=== PATIENT | female | born 1990 | race Caucasian/White ===

== ENCOUNTER → 2017-09-05 | Outpatient (CLI) | payer OTHER | LOC: CLAB 11:25 | DX: O20.0 Threatened abortion (principal) | CPT/HCPCS: 36415; 84702 ==

== ENCOUNTER 2018-05-08 16:20 | Inpatient (IN) ==
--- NOTE | 2018-05-08 17:28 | ED ---
History of Present Illness Service: OB ED Primary Care Physician: NOT REQUIRED Chief Complaint: Leaking fluid History of Present Illness: Pt is a 27 yo at 39 weeks. EDC 05-15-2018, care with Dr Sinclair. Pt reports some contractions last night, with some mucoid dischrge. She states that she noted clear leaking around 13:45 today. She reports active movements. GBS is negative. Cervix was Ft dilated when examined in the office yesterday. Weeks Gestation:: 39 Para: 0 : 1 - Inpatient Certification I certify that the inpatient services were ordered in accordance with Medicare regulations governing the order. This includes certification that hospital inpatient services are reasonable and necessary and in the case of services not specified as inpatient-only under 42 CFR 419.22(n), that they are appropriately provided as inpatient services in accordance to with the 2-midnight benchmark under 43 CFR 412.3(e) Review of Systems All other systems reviewed negative except as stated in HPI PMFSH - Medical / Surgical Hx Neg / Unobtainable Surgical History: No Previous Surgery - Social History I have reviewed the patient's Social History: Yes - Tobacco History Second Hand Smoke Exposure: No Tobacco Use In Past 30 Days: No - Substance Use History Substance History: No History of Abuse Medications and Allergies Allergies Allergy/AdvReac Type Severity Reaction Status Date / Time No Known Allergies Allergy Unverified 09/03/17 10:39 Exam Vital signs: Vital Signs 05/08/18 16:44 Temperature 99.2 F Pulse Rate 88 Respiratory Rate 20 Blood Pressure 126/78 - Constitutional no acute distress - Routine HEENT Exam Head: Present: normocephalic Eye: Present: PERRL - Routine Neck Exam Present: supple - Routine Respiratory Exam Present: CTA bilaterally - Routine Cardiovascular Exam Present: RRR - Routine Abdominal Exam Present: soft - Routine Neurological Exam Present: oriented X3, normal reflexes - Additional findings Additional findings: FHR Cat 1, 130s, moderate variability, accels, no decells TOCO q 1-8 minutes SVE: FT/50%/-2, posterior , soft. Assessment and Plan - Diagnosis (1) 39 weeks gestation of Code(s): Z3A.39 - 39 weeks gestation of Status: Acute (2) Leakage of amniotic fluid Code(s): O42.90 - Premature rupture of membranes, unspecified as to length of time between rupture and onset of labor, unspecified weeks of gestation Status : Acute Plan: Confirmed with [facility]. Will admit to L&D. GBS negative. - Plan SROM at term. Cervix FT. GBS negative.[facility] POSITIVE Will admit for labor. Discuused with Dr Schwartz covering for Dr Sinclair Discharge Plan - Discharge Disposition Patient Disposition: 30 Still Patient - Discharge Condition Condition: Good - Discharge Details Diagnosis: with 39 completed weeks gestation, Leakage, amniotic fluid, Admitted to labor and delivery - Physicians Team ED Provider: Oscar Simms Primary Care Provider: NOT REQUIRED,
[2018-05-08] MEDS ORDERED: Sod Chloride 0.9% Inj 1,000 ML IV.CONT PRN (17:41)
[2018-05-08] MEDS ORDERED: Naloxone Inj 0.4 MG/ML Vial IV.PUSH PRN (17:41)
[2018-05-08] MEDS ORDERED: Sodium Chlor 0.9% Inj 500 ML IV.SIG PRN (17:41)
[2018-05-08] MEDS ORDERED: Oxytocin 30 Units/500ml Premix 30 UNITS/500 ML BAG IV.SIG ONE (17:41)
[2018-05-08] MEDS ORDERED: fentaNYL Citrate Inj 100 MCG/2 ML Ampul IV.PUSH PRN (17:41)
[2018-05-08] MEDS ORDERED: Citric Acid/Sodium Citrate Liq 30 ML UDC PO SCH (17:45)
--- NOTE | 2018-05-08 17:55 | P.OBGPN ---
Brief update note placed remotely, have not yet met / examined patient S: per triage physician, pt is well O: : per triage MD finger tip / 50%. FHTs: 120s moderate variability, no deceleration, positive accelerations TOCO: ctx q 5-8 minutes A/P: 27 yo G1 at 39w0d by 8w US admitted after SROM 1. IUP: Cat 1 tracing - cephalic per triage MD on presentation, EFW to be determined, GBS neg 2. SROM / labor augmentation: clear fluid, SROM at 1345 today, BS unfavorable, put not yet in labor, begin with PO miso 25mcg, may increase to 50 if needed or until BS favorable, max 4-6 doses, then pit. Anticipate .
[2018-05-08 17:58] LABS: Baso % (Auto) 0.3 % (0.0-2.0); Eos % (Auto) 0.2 % (0.0-4.0); Hematocrit 33.9 % (35.0-46.0); Hemoglobin 11.4 gm/dL (11.6-15.3); Lymph # (Auto) 1.5 th/mm3 (1.0-4.8); Mean Corpuscular HGB Conc 33.7 % (32.0-36.0); Mean Corpuscular Hemoglobin 27.1 pg (27.0-34.0); Mean Corpuscular Volume 80.4 fL (80.0-100.0); Mean Platelet Volume 10.2 fL (7.0-11.0); Mono # (Auto) 0.7 th/mm3 (0.0-0.9); Mono % (Auto) 8.7 % (0.0-8.0); Neut # (Auto) 5.8 th/mm3 (1.8-7.7); Neut % (Auto) 71.8 % (16.0-70.0); Platelet Count 141 th/mm3 (150-450); Red Blood Count 4.22 mil/mm3 (4.00-5.30); White Blood Count 8.1 th/mm3 (4.0-11.0)
[2018-05-08 18:23] LABS: Amphetamine Urine With Conf Neg (Neg); Benzodiazepine Urine With Conf Neg (Neg)
--- NOTE | 2018-05-09 06:05 | P.OBGPN ---
S: Patient doing well, feeling contractions every 3-5 minutes, no fever, O: : Finger tip/thick/high/medium/posterior. FHTs: 120s-130s moderate variability, no deceleration, positive accelerations TOCO: Difficult to trace, irritability at times, patient subjectively feels them every 3-5 minutes. A/P: 27 yo G1 at 39w1d by 8w US admitted after SROM 1. IUP: Cat 1 tracing - cephalic per triage MD on presentation, EFW 6.5-7 lbs, GBS neg - Female fetus. 2. SROM / labor augmentation: s/p SROM at 1345 on 05/08. BS still unfavorable, put not yet in labor, continue miso 25mcg, s/p 2 PO, next rec buccally. After 4 doses will begin pit. Anticipate . - Does not desire epidural. 3. Thrombocytopenia: Likely gestational, baseline 170 in October of this year 4. Varicella nonimmune: Vaccine .
[2018-05-09] MEDS ORDERED: Oxytocin 30 Units/500ml Premix 30 UNITS/500 ML BAG IV.SIG PRN (06:08)
[2018-05-09] MEDS: fentaNYL Citrate Inj 100 MCG/2 ML Ampul IV.PUSH PRN ×2 (08:55→10:34)
[2018-05-09] MEDS ORDERED: fentaNYL 2MCG-Bupiv 0.125% Epi 150 ML EPIDURAL ONE (10:39)
[2018-05-09] MEDS ORDERED: Lidocaine PF 1% Inj 5 ML Vial ONE (10:51)
[2018-05-09] MEDS ORDERED: Bupivacaine PF 0.25% Inj 10 ML Vial ONE (10:51)
[2018-05-09] MEDS ORDERED: Lidocaine 1%/Epinephrine 1:100,000 Inj 20 ML Vial ONE (10:51)
[2018-05-09] MEDS ORDERED: Lidocaaine 1.5%/Epinephrine 1:200,000 PF Inj 5 ML Amp ONE (10:53)
[2018-05-09] MEDS ORDERED: fentaNYL 2MCG-Bupiv 0.125% Epi 150 ML EPIDURAL PRN (13:00)
[2018-05-09] MEDS ORDERED: fentaNYL Citrate Inj 100 MCG/2 ML Ampul EPIDURAL ONE (13:00)
[2018-05-09] MEDS ORDERED: Measles/Mumps/Rubella Vaccine Inj 0.5 ML Vial SQ ONE (16:00)
[2018-05-09] MEDS ORDERED: Diphtheria/Tetanus/Pertussis Vaccine Inj 0.5 ML Syringe IM ONE (16:00)
[2018-05-09] MEDS ORDERED: Zolpidem Tartrate 5 MG Tablet PO PRN (17:36)
[2018-05-09] MEDS ORDERED: Oxytocin 30 Units/500ml Premix 30 UNITS/500 ML BAG IV.CONT PRN (17:36)
[2018-05-09] MEDS ORDERED: Naloxone Inj 0.4 MG/ML Vial IV.PUSH PRN (17:36)
[2018-05-09] MEDS ORDERED: Benzocaine 20% Top Spray 60 ML Can TOPICAL PRN (17:36)
[2018-05-09] MEDS ORDERED: Acetaminophen 325 MG Tablet PO PRN (17:36)
[2018-05-09] MEDS ORDERED: Witch Hazel 50%/Glyderin 12.5% 40 Pad Jar RECTAL PRN (17:36)
[2018-05-09] MEDS ORDERED: Bisacodyl 10 MG Supp RECTAL PRN (17:36)
[2018-05-09 17:52] LABS: VBG Base Excess -6.6 mmol/L (-2-2); VBG Blood Gas Oxygen Content 18.9 Vol % (9.0-17.0); VBG PCO2 44 mmHG (44-48); VBG PH 7.26 (7.360-7.400); VBG PO2 32 mmHG (35-40)
--- NOTE | 2018-05-09 17:52 | P.OP ---
Date of procedure: 05/09/18 Surgeon: Víctor Scwhartz MD Operation and Findings: Preoperative diagnosis: 1. Intrauterine at 39 weeks and 1 day 2. Persistent category 2 tracing 3. Poor maternal pushing effort Postop diagnosis 1. Same as above status post vacuum-assisted vaginal delivery Procedure 1. Vacuum-assisted vaginal delivery Surgeon Dr. Víctor Schwartz Cylinder Machine Operator Pulp Drier: Jennifer labor and delivery nursing staff Findings: 1. Viable female at 5:09 PM. Apgars 3, 7, and 8 per staff. [place] weight 3340 grams. Terminal meconium 2. Intact placenta with three-vessel cord at 5:19 PM 3. First-degree laceration 4. Umbilical arterial and venous cord gases collected and pending. Anesthesia: Epidural Specimen: Placenta to pathology, routine. Cord blood and umbilical cord segment to private banking per patient request Estimated blood loss: 200 cc Fluid replacement: Lactated Ringer's and Pitocin Urine output: None recorded DVT prophylaxis: None Antibiotics: None required Counts: correct x2 Time out done: yes Disposition: Stable to Indications: Patient is a 27-year-old G1 now P1 001 who presented with spontaneous rupture of membranes and an unfavorable Portillo score, she received oral misoprostol x3 doses, she then progressed to complete without further need for augmentation, at times due to variable decelerations but overall a reactive reassuring tracing, labor and delivery nursing placed in FSE and IUPC and started an amnioinfusion during her labor course. I pushed with the patient for approximately an hour and a half and the labor and delivery nurse pushed with with the patient herself for an hour and a half separately, the patient had very slow but continued descent, variable decelerations were appreciated with most pushing efforts but over time became deeper and more prolonged, the patient was counseled for a vacuum-assisted delivery please see below. Description of procedure: Consent: The risks (which are relatively low and generally are viewed as acceptable for the above indications by ACOG), benefits, alternatives, expected outcomes, and risks of declining treatment were explained and discussed with the patient risks including but not limited to scalp laceration, retinal hemorrhages, brachial plexus injury, cephalohematoma formation, and subgaleal or intracranial hemorrhage, which typically are transient but can results in permanent neurological sequela. Maternal risk included but not limited to perineal laceration and failure of vacuum and potentially needed a . Description of procedure: The fetus was at +2 station and in occiput anterior position, the bladder was drained, and her anesthesia was adequate, the vacuum was placed 2 cm anterior to the posterior fontanelle over the sagital suture. Suction was applied to green and with coordination of maternal pushing efforts downward traction was applied slow descent was appreciated and 2 pop offs incidentally occurred. The patient pushed 2-3 more times without assistance of the vacuum and continued to have episodes deep variable decelerations, due to continued poor maternal effort a episiotomy was made and the vacuum was reapplied and suction applied to green and the head was fully delivered and the vacuum was immediately removed. The head was allowed to restitute naturally after delivery with a supported perineum, a loose nuchal cord was reduced, with gentle downward guidance anterior shoulder was delivered followed by gentle upper guidance for the posterior shoulder, the torso and lower extremities delivered with ease with continued perineal support. The had no spontaneous cry and poor tone, the cord was clamped and cut immediately and handed off to the staff for assessment and any needed resuscitation we collected cord gases and then cord blood and a cord segment per the families request for private banking per the products instructions. Pitocin was bolused and with fundal massage the placenta was delivered, there is minimal bleeding from above and uterus was firm. The perineum vagina and cervix were inspected and a first-degree laceration was repaired with 3-0 Vicryl in a standard fashion. The patient tolerated the procedure well and was left in the birthing suite with her .
[2018-05-09] MEDS ORDERED: Rho Immune Globulin Inj 1,500 UNIT/1.3 ML Vial IM ONE (18:00)
[2018-05-09] MEDS: Senna/Docusate Sodium 8.6/50 MG Tablet PO SCH (20:31)
--- NOTE | 2018-05-10 08:43 | P.PNOB ---
Subjective Post day: 1 Interval history: Doing well, pain controlled, ambulating without difficulty, voiding spontaneously, tolerating regular diet, vaginal bleeding less than menses. Objective Vital Signs/I&O: Vital Signs 05/09/18 09:00 05/09/18 10:33 05/09/18 10:45 Temperature 98.6 F Pulse Rate 73 71 Respiratory Rate 16 Blood Pressure 104/60 116/91 H 05/09/18 10:59 05/09/18 11:00 05/09/18 11:14 Temperature Pulse Rate 81 79 73 Respiratory Rate Blood Pressure 125/65 120/74 120/69 05/09/18 11:20 05/09/18 11:25 05/09/18 11:40 Temperature Pulse Rate 78 74 74 Respiratory Rate Blood Pressure 122/77 83/66 L 109/56 L 05/09/18 11:55 05/09/18 12:10 05/09/18 12:15 Temperature Pulse Rate 77 73 71 Respiratory Rate 18 Blood Pressure 154/112 H 109/79 05/09/18 12:20 05/09/18 12:40 05/09/18 12:55 Temperature Pulse Rate 82 85 79 Respiratory Rate Blood Pressure 122/71 134/111 H 05/09/18 13:10 05/09/18 14:00 05/09/18 15:10 Temperature Pulse Rate 72 88 58 L Respiratory Rate 16 Blood Pressure 121/73 115/67 136/110 H 05/09/18 16:10 05/09/18 16:35 05/09/18 16:45 Temperature Pulse Rate 111 H 90 Respiratory Rate 18 Blood Pressure 123/88 144/68 H 05/09/18 17:45 05/09/18 18:16 05/09/18 18:31 Temperature Pulse Rate 91 H 67 76 Respiratory Rate 16 Blood Pressure 138/78 119/53 L 05/09/18 18:46 05/09/18 19:00 05/09/18 19:05 Temperature 98.8 F Pulse Rate 69 67 Respiratory Rate 18 Blood Pressure 107/38 L 114/71 05/09/18 19:30 05/09/18 19:54 05/09/18 19:55 Temperature Pulse Rate 64 69 Respiratory Rate 18 Blood Pressure 120/71 112/66 05/09/18 20:13 05/10/18 01:00 05/10/18 04:11 Temperature 98.3 F 98.2 F 97.5 F L Pulse Rate 67 64 69 Respiratory Rate 17 18 18 Blood Pressure 119/70 106/63 114/69 05/10/18 07:40 Temperature 98.2 F Pulse Rate 65 Respiratory Rate 16 Blood Pressure 135/81 Intake & Output 05/09/18 05/10/18 05/10/18 18:59 06:59 18:59 Intake Total 1999 Balance 1999 Weight 70.76 kg Intake: IV 1999 LR 1000 mL Inj 1,000 ML @ 125 1999 mls/hr IV.CONT .Q8H [facility] Rx#: [id number] Other: Weight On Admission 70.76 kg Result Diagrams: 05/08/18 17:22 Objective Remarks: GENERAL: Well-nourished, well-developed patient. CARDIOVASCULAR: Regular rate and rhythm without murmurs, gallops, or rubs. RESPIRATORY: Breath sounds equal bilaterally. No accessory muscle use. ABDOMEN/GI: Abdomen soft, non-tender. Fundus: Firm, non-tender at umbilicus. GENITOURINARY: Light to moderate bleeding. EXTREMITIES: No cyanosis or edema, non-tender, without signs of DVT. Medications and IVs: Active Medications Acetaminophen (Tylenol) 650 mg PO Q4H PRN PRN Reason: PAIN SCALE 1 TO 2 Al Hydroxide/Mg Hydroxide (Milk Of Magnesia Liq) 30 ml PO Q12H PRN PRN Reason: Mild Constipation Benzocaine (Americaine 20% [place]) 1 spray TOPICAL Q4H PRN PRN Reason: For Perineum Discomfort Bisacodyl (Dulcolax Supp) 10 mg RECTAL DAILY PRN PRN Reason: SEVERE CONSITIPATION Oxytocin (Pitocin 30 Units/Ns 500 Ml Premix) 30 units in 500 mls @ 100 mls/hr IV.CONT UNSCH PRN PRN Reason: Heavy bleeding Ibuprofen (Motrin) 800 mg PO Q8H PRN PRN Reason: For Cramping Last Admin: 05/10/18 03:57 Dose: 800 mg Lactulose (Lactulose Liq) 30 ml PO DAILY PRN PRN Reason: SEVERE CONSITIPATION Naloxone HCl (Narcan Inj) 0.1 mg IV.PUSH Q2M PRN PRN Reason: for opiate reversal Ondansetron HCl (Zofran Odt) 4 mg PO Q6H PRN PRN Reason: NAUSEA OR VOMITING Oxycodone/Acetaminophen (Percocet 5/325 Mg) 2 tab PO Q4H PRN PRN Reason: PAIN SCALE 6 TO 10 Oxycodone/Acetaminophen (Percocet 5/325 Mg) 1 tab PO Q4H PRN PRN Reason: PAIN SCALE 3 TO 5 Vit/Calcium/Iron/Folic Ac (Stuartnatal Plus 3) 1 tab PO DAILY [facility] Senna/Docusate Sodium (Liane-Colace) 1 tab PO BID [facility] Last Admin: 05/09/18 20:31 Dose: Not Given Sennosides (Senokot) 17.2 mg PO Q12H PRN PRN Reason: Moderate Constipation Sodium Chloride (Ns Flush) 2 ml IV.FLUSH BID [facility] Last Admin: 05/10/18 00:00 Dose: Not Given Sodium Chloride (Ns Flush) 2 ml IV.FLUSH PRN PRN PRN Reason: FLUSH AFTER USING IV ACCESS Witch Kristin/Glycerin (Tucks Pads) 1 applicatio RECTAL QID PRN PRN Reason: HEMORRHOIDS Zolpidem Tartrate (Ambien) 5 mg PO HS PRN PRN Reason: SLEEP Assessment and Plan - Plan 27-year-old status post vacuum-assisted vaginal delivery at 39 weeks and 1 day for category 2 tracing for maternal effort. 1. day #1: Doing well, meeting milestones, anticipate discharge home tomorrow. Discussed expectations, precautions and follow-up. - female in the NICU due to respiratory distress per NICU nurse she is doing well, 2. Thrombocytopenia: Likely gestational.
[2018-05-10] MEDS: Senna/Docusate Sodium 8.6/50 MG Tablet PO SCH ×2 (08:58→21:45)
[2018-05-10] MEDS: Prenatal Vit/Ca/Iron/Folic Acid Tablet PO SCH (09:02)
[2018-05-10] MEDS: Ibuprofen 400 MG Tablet PO PRN ×2 (12:01→19:40)
[2018-05-11] MEDS: Ibuprofen 400 MG Tablet PO PRN ×2 (03:26→12:21)
--- NOTE | 2018-05-11 07:59 | P.PNOB ---
Subjective Post day: 2 Interval history: PPD#2; Doing well, pumping with bottle feeding. Objective Vital Signs/I&O: Vital Signs 05/10/18 15:50 05/10/18 19:40 Temperature 98.9 F Pulse Rate 78 90 Respiratory Rate 20 18 Blood Pressure 126/74 117/72 Result Diagrams: 05/08/18 17:22 Objective Remarks: GENERAL: Well-nourished, well-developed patient. CARDIOVASCULAR: Regular rate and rhythm without murmurs, gallops, or rubs. RESPIRATORY: Breath sounds equal bilaterally. No accessory muscle use. ABDOMEN/GI: Abdomen soft, non-tender. Fundus: Firm, non-tender at umbilicus. GENITOURINARY: Light to moderate bleeding. EXTREMITIES: No cyanosis or edema, non-tender, without signs of DVT. Medications and IVs: Active Medications Acetaminophen (Tylenol) 650 mg PO Q4H PRN PRN Reason: PAIN SCALE 1 TO 2 Al Hydroxide/Mg Hydroxide (Milk Of Magnesia Liq) 30 ml PO Q12H PRN PRN Reason: Mild Constipation Benzocaine (Americaine 20% [place]) 1 spray TOPICAL Q4H PRN PRN Reason: For Perineum Discomfort Last Admin: 05/10/18 19:39 Dose: 1 spray Bisacodyl (Dulcolax Supp) 10 mg RECTAL DAILY PRN PRN Reason: SEVERE CONSITIPATION Oxytocin (Pitocin 30 Units/Ns 500 Ml Premix) 30 units in 500 mls @ 100 mls/hr IV.CONT UNSCH PRN PRN Reason: Heavy bleeding Ibuprofen (Motrin) 800 mg PO Q8H PRN PRN Reason: CRAMPING Last Admin: 05/11/18 03:26 Dose: 800 mg Lactulose (Lactulose Liq) 30 ml PO DAILY PRN PRN Reason: SEVERE CONSITIPATION Naloxone HCl (Narcan Inj) 0.1 mg IV.PUSH Q2M PRN PRN Reason: for opiate reversal Ondansetron HCl (Zofran Odt) 4 mg PO Q6H PRN PRN Reason: NAUSEA OR VOMITING Oxycodone/Acetaminophen (Percocet 5/325 Mg) 2 tab PO Q4H PRN PRN Reason: PAIN SCALE 6 TO 10 Oxycodone/Acetaminophen (Percocet 5/325 Mg) 1 tab PO Q4H PRN PRN Reason: PAIN SCALE 3 TO 5 Vit/Calcium/Iron/Folic Ac (Stuartnatal Plus 3) 1 tab PO DAILY [facility] Last Admin: 05/10/18 09:02 Dose: 1 tab Senna/Docusate Sodium (Liane-Colace) 1 tab PO BID [facility] Last Admin: 05/10/18 21:45 Dose: Not Given Sennosides (Senokot) 17.2 mg PO Q12H PRN PRN Reason: Moderate Constipation Sodium Chloride (Ns Flush) 2 ml IV.FLUSH BID [facility] Last Admin: 05/10/18 21:45 Dose: Not Given Sodium Chloride (Ns Flush) 2 ml IV.FLUSH PRN PRN PRN Reason: FLUSH AFTER USING IV ACCESS Witch Kristin/Glycerin (Tucks Pads) 1 applicatio RECTAL QID PRN PRN Reason: HEMORRHOIDS Last Admin: 05/10/18 19:39 Dose: 1 applicatio Zolpidem Tartrate (Ambien) 5 mg PO HS PRN PRN Reason: SLEEP Assessment and Plan - Plan 27-year-old status post vacuum-assisted vaginal delivery at 39 weeks and 1 day for category 2 tracing for maternal effort. 1. day #1: Doing well, meeting milestones, anticipate discharge home tomorrow. Discussed expectations, precautions and follow-up. - female in the NICU due to respiratory distress per NICU nurse she is doing well, 2. Thrombocytopenia: Likely gestational. 05/11/18: PPD#2, Stable for discharge, RTO in 6 weeks Discharge Planning: Routine - Attending Attestation Seen by me
[2018-05-11] MEDS: Prenatal Vit/Ca/Iron/Folic Acid Tablet PO SCH (12:22)
[2018-05-11] MEDS: Senna/Docusate Sodium 8.6/50 MG Tablet PO SCH (12:22)
== END 2018-05-11 17:05 | disposition home or self-care (01) ==
LOC: HOBED 16:20 → H2E 17:04 → H1EA 05-09 19:59
PROVIDERS: ADMIT Obstetrics & Gynecology; ATTEND Obstetrics & Gynecology